=== PATIENT | male | born 1965 | race Caucasian/White ===

== ENCOUNTER 2018-06-02 00:22 | Observation (INO) ==
[2018-06-02 00:56] LABS: Baso # (Auto) 0.1 th/mm3 (0.0-0.2); Baso % (Auto) 0.8 % (0.0-2.0); Eos # (Auto) 0.3 th/mm3 (0.0-0.4); Eos % (Auto) 3.2 % (0.0-4.0); Hematocrit 44.7 % (39.0-51.0); Hemoglobin 15.2 gm/dL (13.0-17.0); Lymph # (Auto) 2.2 th/mm3 (1.0-4.8); Lymph % (Auto) 25.7 % (9.0-44.0); Mean Corpuscular HGB Conc 34.1 % (32.0-36.0); Mean Corpuscular Hemoglobin 32.3 pg (27.0-34.0); Mean Corpuscular Volume 94.7 fL (80.0-100.0); Mean Platelet Volume 8.7 fL (7.0-11.0); Mono % (Auto) 11.3 % (0.0-8.0); Platelet Count 201 th/mm3 (150-450); Red Blood Count 4.72 mil/mm3 (4.50-5.90); Red Cell Distribution Width 13.2 % (11.6-17.2); White Blood Count 8.5 th/mm3 (4.0-11.0)
[2018-06-02] MEDS ORDERED: Sodium Chlor 0.9% Inj 500 ML IV.SIG ONE ×2 (01:05→02:14)
[2018-06-02 01:15] LABS: Activated Partial Thrombo Time 19.8 sec (23.4-31.7); Prothrombin Time 10.4 sec (9.8-11.6)
[2018-06-02 01:18] LABS: Alanine Aminotransferase 71 U/L (12-78); Albumin 3.6 g/dL (3.4-5.0); Anion Gap 12 meq/L (5-15); Aspartate Aminotransferase 76 U/L (15-37); Blood Urea Nitrogen 19 mg/dL (7-18); Calcium 8.6 mg/dL (8.5-10.1); Carbon Dioxide 25.8 meq/L (21.0-32.0); Chloride 101 meq/L (98-107); Glomerular Filtration Rate 55 mL/min (>89); Glucose,Random 139 mg/dL (74-106); Lipase 187 U/L (73-393); Potassium 3.1 meq/L (3.5-5.1); Sodium 139 meq/L (136-145)
[2018-06-02 01:25] LABS: Alkaline Phosphatase 82 U/L (45-117); Creatine Kinase 179 U/L (39-308); Total Protein 7.3 g/dL (6.4-8.2)
--- NOTE | 2018-06-02 01:38 | ED ---
HPI General Chief complaint: Fall Stated complaint: fall Time Seen by Provider: 06/02/18 00:32 Source: patient History of Present Illness HPI narrative: The patient is a a 53 year old male who presents to the [facility] emergency department with a history of passing out prior to arrival. The patient reports that he got up off of the couch after watching television to go to bed and the next thing he knows is he awoke on the floor with ambulance services surrounding them. His was at his side when this occurred. She reports that she heard him land on the floor. She reports that he was unresponsive for approximately 30-45 seconds with his eyes closed, unresponsive to physical or verbal stimulation by her. She reports that she immediately called the ambulance services and while she was on the phone with 911 he became responsive and grabbed her arms stating, "I am scared." At this time, he is awake and alert, however he cannot recall any of the events prior to the syncopal event besides watching television. He is unsure whether he had any lightheaded sensation prior to this, palpitations, chest pain, or shortness of breath. He denies having any chest pain, chest pressure, or shortness of breath at this time. He does report having a headache and did acquire an approximately 2 cm laceration to the occiput. He denies having any neck pain, numbness or tingling to his extremities, or weakness of his extremities. On review of systems otherwise, the patient denies having any known recent fevers, cough, congestion, abdominal pain, diarrhea, urinary symptoms, or other neurologic symptoms. The patient reports that he does have a history of chronic nausea and intermittent dry heaving usually in the mornings that is been present for the last 2 years and under workup by his primary care doctor and keyboard specialist. Related Data Home Medications Medication Instructions Recorded Confirmed aspirin [Aspirin Low Dose] 81 mg PO DAILY 06/02/18 06/02/18 losartan 50 mg PO DAILY 06/02/18 06/02/18 pantoprazole 20 mg PO DAILY 06/02/18 06/02/18 Allergies Allergy/AdvReac Type Severity Reaction Status Date / Time penicillin G Allergy Mild SHOCK Unverified 12/02/16 20:42 Review of Systems ROS: all other systems reviewed are negative [facility] Medical History Medical History GERD (gastroesophageal reflux disease) (Acute) Gout (Acute) Hyperlipidemia (Acute) Hypertension (Acute) Surgical History Surgical History H/O hernia repair (Acute) H/O knee surgery (Acute) Social History Social History Substance History: No History of Abuse Second Hand Smoke Exposure: No Smoking Status: Never smoker How Often Do You Have a Drink Containing Alcohol: 4 or more times a week Recent Travel in [facility] within the Last 8 Weeks: No Recent Out of Country Travel within the Last 8 Weeks: No Immunization History Tetanus Immunization: >5 Years Exam Const General: cooperative, no acute distress and well developed Nutritional Appearance: well nourished Orientation: alert, awake and oriented x3 HENMT Head: normocephalic and other (trauma to occiput with superficial and 2 cm, no active bleeding) Nose: no nasal discharge and no epistaxis Mouth: moist mucous membranes Throat: posterior oropharynx normal and uvula midline Eyes Sclera: normal sclerae Pupils: PERRL Neck Neck: no meningeal signs, trachea midline and no JVD Resp Effort & Inspection: no use of accessory muscles Auscultation: clear to auscultation bilaterally Cardio Rate: regular rate Rhythm: regular rhythm Heart Sounds: no murmurs GI Inspection: non-distended Palpation: soft, no hepatosplenomegaly, no guarding, not rigid and nontender Auscultation: normal bowel sounds Back/Spine/Pelvis Back: no CVA tenderness Cervical Spine: No cervical spinal tenderness Thoracic/Lumbar Spine: No thoracic spinal tenderness and No lumbar spinal tenderness Skin General: dry skin (warm) Neuro General: alert, awake and oriented x3 Cranial Nerves: CN's II-XI intact bilaterally Speech: speech normal Motor: strength 5/5 throughout and no movement abnormalities noted Sensory Exam: no sensory deficits noted Extrem General: normal to inspection, no clubbing, no cyanosis and no edema Psych Mood: congruent mood Affect: normal affect Judgment: judgment good Course Initial Documented Vital Signs Pulse Rate 98 H 06/02/18 00:33 Respiratory Rate 18 06/02/18 00:33 Blood Pressure 133/80 06/02/18 00:33 Pulse Oximetry 95 06/02/18 00:33 Last Documented Vital Signs Temperature 98.4 F 06/02/18 08:19 Pulse Rate 90 06/02/18 08:19 Respiratory Rate 16 06/02/18 08:19 Blood Pressure 104/60 06/02/18 08:19 Pulse Oximetry 92 L 06/02/18 08:19 Medical Decision Making MDM Narrative Medical decision making narrative: During the course of the patient's emergency department visit, the patient's history, examination, and differential diagnosis were reviewed with the patient. The patient was placed on a environmental health aide with oximetry and frequent blood pressure monitoring. The patient had IV access obtained and blood work sent for analysis. A diagnostic evaluation was started regarding this patient's syncopal event. The patient had orthostatic vital signs ordered. The patient was orthostatic based on his vital signs with a drop in his blood pressure of 28 mmHg. The patient was initially provided normal saline a total of 1 L IV fluid bolus. The patient CT scan of the brain showed no acute abnormality. CT scan of the C- spine showed no acute bony abnormality. The patient's laboratory studies are remarkable for potassium 3.1 which was supplemented orally. The patient's creatinine was also noted to be elevated at 1.35. The patient reports that he normally has denies any history of renal insufficiency. This could be related to dehydration. The patient was started on p.o. hydration. The patient's case including history, pertinent physical examination findings, and laboratory studies were discussed with Dr. Godinez. It was agreed that the patient would be admitted to the [facility] hospitalist service. The patient's results were discussed with the patient, including the plan of care. I explained that further testing and/ or monitoring is indicated based on the patient's history, examination, and/ or laboratory findings. Therefore, I recommended admission for additional evaluation. The patient expressed understanding and was agreeable with this plan. The patient was admitted to the hospital in guarded condition and sent to a bed under the care of the [facility] hospitalist. Medical Screen Exam Complete: Yes Emergency Medical Condition: Yes Differential Diagnosis Differential Diagnosis: Orthostatic syncope, versus vasovagal syncope, versus cardiac arrhythmia, versus hypotension, versus dehydration Medical Records Medical records reviewed: Yes I reviewed the patient's medical records. Lab Data Lab results reviewed: Yes I reviewed the patient's lab results. Result diagrams: 06/02/18 00:45 06/02/18 00:45 Lab Results 06/02/18 06/02/18 06/02/18 Range/Units 00:45 00:45 00:45 WBC 8.5 (4.0-11.0) th/mm3 RBC 4.72 (4.50-5.90) mil/mm3 Hgb 15.2 (13.0-17.0) gm/dL Hct 44.7 (39.0-51.0) % MCV 94.7 (80.0-100.0) fL MCH 32.3 (27.0-34.0) pg MCHC 34.1 (32.0-36.0) % RDW 13.2 (11.6-17.2) % Plt Count 201 (150-450) th/mm3 MPV 8.7 (7.0-11.0) fL Neut % (Auto) 59.0 (16.0-70.0) % Lymph % (Auto) 25.7 (9.0-44.0) % Logan % (Auto) 11.3 H (0.0-8.0) % Eos % (Auto) 3.2 (0.0-4.0) % Baso % (Auto) 0.8 (0.0-2.0) % Neut # (Auto) 5.0 (1.8-7.7) th/mm3 Lymph # (Auto) 2.2 (1.0-4.8) th/mm3 Logan # (Auto) 1.0 H (0.0-0.9) th/mm3 Eos # (Auto) 0.3 (0.0-0.4) th/mm3 Baso # (Auto) 0.1 (0.0-0.2) th/mm3 WBC Differential . Differential Comment Auto diff final PT 10.4 (9.8-11.6) sec INR 1.0 Ratio APTT 19.8 L (23.4-31.7) sec Sodium 139 (136-145) meq/L Potassium 3.1 L (3.5-5.1) meq/L Chloride 101 (98-107) meq/L Carbon Dioxide 25.8 (21.0-32.0) meq/L Anion Gap 12 (5-15) meq/L BUN 19 H (7-18) mg/dL Creatinine 1.35 H (0.60-1.30) mg/dL Estimated GFR 55 L (>89) mL/min Random Glucose 139 H (74-106) mg/dL Calcium 8.6 (8.5-10.1) mg/dL Total Bilirubin 0.4 (0.2-1.0) mg/dL AST 76 H (15-37) U/L ALT 71 (12-78) U/L Alkaline Phosphatase 82 (45-117) U/L Total Creatine Kinase 179 (39-308) U/L CK-MB (CK-2) 1.4 (0.5-3.6) ng/mL Troponin I Less than 0.02 L (0.02-0.05) ng/mL Total Protein 7.3 (6.4-8.2) g/dL Albumin 3.6 (3.4-5.0) g/dL Lipase 187 (73-393) U/L Urine Opiates Screen (Neg) Ur Barbiturates Screen (Neg) Ur Amphetamines Screen (Neg) U Benzodiazepines Scrn (Neg) Urine Cocaine Screen (Neg) U Cannabinoids Screen (Neg) Serum Alcohol 217 H (0-5) mg/dL 06/02/18 Range/Units 01:25 WBC (4.0-11.0) th/mm3 RBC (4.50-5.90) mil/mm3 Hgb (13.0-17.0) gm/dL Hct (39.0-51.0) % MCV (80.0-100.0) fL MCH (27.0-34.0) pg MCHC (32.0-36.0) % RDW (11.6-17.2) % Plt Count (150-450) th/mm3 MPV (7.0-11.0) fL Neut % (Auto) (16.0-70.0) % Lymph % (Auto) (9.0-44.0) % Logan % (Auto) (0.0-8.0) % Eos % (Auto) (0.0-4.0) % Baso % (Auto) (0.0-2.0) % Neut # (Auto) (1.8-7.7) th/mm3 Lymph # (Auto) (1.0-4.8) th/mm3 Logan # (Auto) (0.0-0.9) th/mm3 Eos # (Auto) (0.0-0.4) th/mm3 Baso # (Auto) (0.0-0.2) th/mm3 WBC Differential Differential Comment PT (9.8-11.6) sec INR Ratio APTT (23.4-31.7) sec Sodium (136-145) meq/L Potassium (3.5-5.1) meq/L Chloride (98-107) meq/L Carbon Dioxide (21.0-32.0) meq/L Anion Gap (5-15) meq/L BUN (7-18) mg/dL Creatinine (0.60-1.30) mg/dL Estimated GFR (>89) mL/min Random Glucose (74-106) mg/dL Calcium (8.5-10.1) mg/dL Total Bilirubin (0.2-1.0) mg/dL AST (15-37) U/L ALT (12-78) U/L Alkaline Phosphatase (45-117) U/L Total Creatine Kinase (39-308) U/L CK-MB (CK-2) (0.5-3.6) ng/mL Troponin I (0.02-0.05) ng/mL Total Protein (6.4-8.2) g/dL Albumin (3.4-5.0) g/dL Lipase (73-393) U/L Urine Opiates Screen Neg (Neg) Ur Barbiturates Screen Neg (Neg) Ur Amphetamines Screen Neg (Neg) U Benzodiazepines Scrn Neg (Neg) Urine Cocaine Screen Neg (Neg) U Cannabinoids Screen Neg (Neg) Serum Alcohol (0-5) mg/dL Imaging Data Radiologist's impression: Cervical Spine CT 06/02/18 02:16 CONCLUSION: No acute bony injury in the cervical spine. Head CT 06/02/18 02:16 CONCLUSION: Negative CT Head non contrast. . ECG Data Attestation: I personally reviewed and interpreted this ECG as follows: Interpretation: The patient had an EKG done on arrival. The patient's EKG reveals a sinus rhythm heart rate of 90, QRS duration 105 ms, QTC [address] segment elevation. T waves are inverted in V1. Discharge Plan Discharge Disposition Patient Disposition: ED Admit(ED Internal Use Only) Discharge Order Discharge Orders: ED Use Only Admit Order (Routine); Ordered 06/02/18 Ordered By: Ya Bryant Discharge Details Diagnosis: Head injury, Syncope, Orthostasis Physicians Team ED Provider: Ya Bryant Primary Care Provider: Fredrick Branham Attending Provider: Donnie Monreal Discharge Interventions Interventions: Vital Signs Last Done: 06/02/18 00:45 ED Discharge Assessment Last Done: 06/02/18 03:23 Status ED Status: Left Department Discharge Information Discharge Date/Time: 06/02/18 03:21
[2018-06-02 01:41] LABS: Alcohol 217 mg/dL (0-5)
[2018-06-02 01:53] LABS: Creatine Kinase MB 1.4 ng/mL (0.5-3.6)
[2018-06-02 02:12] LABS: Amphetamine Screen,Urine Neg (Neg); Barbiturate Screen,Urine Neg (Neg); Cannabinoid Screen,Urine Neg (Neg); Cocaine Screen,Urine Neg (Neg)
[2018-06-02 02:14] LABS: Opiate Screen,Urine Neg (Neg)
--- NOTE | 2018-06-02 02:58 | CT ---
EXAM DATE: 06/02/2018 2:34 AM EST AGE/SEX: 53 years / Male INDICATIONS: Trauma, fall. Laceration to posterior head. CLINICAL DATA: This is the patient's initial encounter. Patient reports that signs and symptoms have been present for 1 day and indicates a pain score of 7/10. MEDICAL/SURGICAL HISTORY: Hypertension. Gastroesophageal reflux disease. None. RADIATION DOSE: 37.56 CTDI (mGy) COMPARISON: [facility], CT SINUSES W/O CONTRAST, 03/27/2014. . TECHNIQUE: CT of the head without contrast. Using automated exposure control and adjustment of the mA and/or kV according to patient size, radiation dose was kept as low as reasonably achievable to ob tain optimal diagnostic quality images. DICOM format image data is available electronically for revi ew and comparison. FINDINGS: Cerebrum: The ventricles are normal for age. No evidence of midline shift, mass lesion, hemorrhage or acute infarction. No extraaxial fluid collections are seen. Posterior Fossa: The cerebellum and brainstem are intact. The 4th ventricle is midline. The cerebe llopontine angle is unremarkable. Extracranial: The visualized portion of the orbits is intact. Skull: The calvaria is intact. No evidence of skull fracture. CONCLUSION: Negative CT Head non contrast. . Electronically signed by: Kartik Dugan MD Board Certified Radiologist 06/02/2018 2:57 AM EST
--- NOTE | 2018-06-02 03:00 | CT ---
EXAM DATE: 06/02/2018 2:38 AM EST AGE/SEX: 53 years / Male INDICATIONS: Trauma, fall. CLINICAL DATA: This is the patient's initial encounter. Patient reports that signs and symptoms have been present for 1 day and indicates a pain score of 7/10. MEDICAL/SURGICAL HISTORY: Hypertension. Gastroesophageal reflux disease. None. RADIATION DOSE: 20.41 CTDI (mGy) COMPARISON: No prior exams available for comparison. TECHNIQUE: Contiguous axial images were obtained using helical multirow detector technique. The vol umetric data was post-processed with multiplanar reconstruction in oblique axial, sagittal, and coron al planes. Using automated exposure control and adjustment of the mA and/or kV according to patient s ize, radiation dose was kept as low as reasonably achievable to obtain optimal diagnostic quality ace ges. DICOM format image data is available electronically for review and comparison. FINDINGS: Spinal alignment is satisfactory. There is no evidence of fracture. There is mild degenera tive change with disc space narrowing most notably at C6-7 and tiny ventral endplate osteophytes note d. Incidental os odontoideum. No bony canal or foraminal stenosis is identified. There is no evidence of paraspinal hematoma. CONCLUSION: No acute bony injury in the cervical spine. Electronically signed by: Kartik Dugan MD Board Certified Radiologist 06/02/2018 2:58 AM EST
--- NOTE | 2018-06-02 09:19 | P.HPIM ---
History of Present Illness Primary Care Physician: Fredrick Branham MD Chief Complaint: Syncope History of Present Illness: The patient is a a 53 year old male past medical history which includes insomnia, ED, hyperlipidemia, hypertension, gout, low testosterone and GERD. Patient presents to the [facility] emergency department after syncopal episode at home. The patient reports that he got up off of the couch after watching television to go to bed and the next thing he knows is he awoke on the floor with ambulance services surrounding them. His was at his side when this occurred. She reports that she heard him land on the floor. She reports that he was unresponsive for approximately 30-45 seconds with his eyes closed, unresponsive to physical or verbal stimulation by her. She reports that she immediately called the ambulance services and while she was on the phone with 911 he became responsive and grabbed her arms stating , "I am scared." At this time, he is awake and alert, however he cannot recall any of the events prior to the syncopal event besides watching television. He is unsure whether he had any lightheaded sensation prior to this, palpitations, chest pain, or shortness of breath. He denies having any chest pain, chest pressure, or shortness of breath at this time. He does report having a headache and did acquire an approximately 2 cm laceration to the occiput. He denies having any neck pain, numbness or tingling to his extremities, or weakness of his extremities. On review of systems otherwise, the patient denies having any known recent fevers, cough, congestion, abdominal pain, diarrhea, urinary symptoms, or other neurologic symptoms. PMH: insomnia, ED, hyperlipidemia, hypertension, gout, low testosterone and GERD PsxH: Left knee arthroscopic x 2, hernia repair at 2 years old, closed treatment of knee fracture tibial plateau, EGD, bunionectomy, inguinal hernia repair, injection of the lumbar spine Social history: Not lives with significant other EtOH use, "a lot," patient reports 2 large vodkas drinks daily Former smoker quit smoking at age 26 prior to quitting had a 10 year pack year history Denies illicit drug use FMH: Father with CAD status post bypass and COPD Mother with diabetes COPD chronic kidney disease and EtOH abuse Medications and Allergies Allergies Allergy/AdvReac Type Severity Reaction Status Date / Time penicillin G Allergy Mild SHOCK Unverified 12/02/16 20:42 Home Medications Medication Instructions Recorded Confirmed Type aspirin [Aspirin Low Dose] 81 mg PO DAILY 06/02/18 06/02/18 History hydrochlorothiazide 25 mg PO DAILY 06/02/18 06/02/18 History losartan 50 mg PO DAILY 06/02/18 06/02/18 History pantoprazole 20 mg PO DAILY 06/02/18 06/02/18 History Physical Exam Vital signs: Last Vital Signs Temp 98.4 F 06/02/18 08:19 Pulse 90 06/02/18 08:19 Resp 16 06/02/18 08:19 BP 104/60 06/02/18 08:19 Pulse Ox 92 L 06/02/18 08:19 Narrative: GENERAL: This is a well-nourished, well-developed patient, in no apparent distress. SKIN: approximately 1 cm scabbed laceration posterior scalp CARDIOVASCULAR: Regular rate and rhythm RESPIRATORY: Clear to auscultation. Breath sounds equal bilaterally. GASTROINTESTINAL: Abdomen soft, non-tender, nondistended. Normal active bowel sounds MUSCULOSKELETAL: Extremities without clubbing, cyanosis, or edema. NEURO: Alert & Oriented x4 to person, place, time, situation. Moves all ext x4 Results Labs CBC & Chem 7: 06/02/18 00:45 06/02/18 10:45 Caprini VTE Risk Assessment Caprini VTE Risk Assessment: No/Low Risk (score <= 1) Caprini Risk Assessment Model: Point Value = 1 Point Value = 2 Point Value = 3 Point Value = 5 Age 41-60 Minor surgery BMI > 25 kg/m2 Swollen legs Varicose veins or History of unexplained or recurrent spontaneous Oral contraceptives or hormone replacement Sepsis (< 1 month) Serious lung disease, including pneumonia (< 1 month) Abnormal pulmonary function Acute myocardial infarction Congestive heart failure (< 1 month) History of inflammatory bowel disease Medical patient at bed rest Age 61-74 Arthroscopic surgery Major open surgery (> 45 min) Laparoscopic surgery (> 45 min) Malignancy Confined to bed (> 72 hours) Immobilizing plaster cast Central venous access Age >= 75 History of VTE Family history of VTE Factor V Leiden Prothrombin [id number] Lupus anticoagulant Anticardiolipin antibodies Elevated serum homocysteine Heparin-induced thrombocytopenia Other congenital or acquired thrombophilia Stroke (< 1 month) Elective arthroplasty Hip, pelvis, or leg fracture Acute spinal cord injury (< 1 month) Prophylaxis Regimen: Total Risk Factor Score Risk Level Prophylaxis Regimen 0-1 Low Early ambulation 2 Moderate Order ONE of the following: *Sequential Compression Device (SCD) *Heparin 5000 units SQ BID 3-4 Higher Order ONE of the following medications: *Heparin 5000 units SQ TID *Enoxaparin/Lovenox 40 mg SQ daily (WT < 150 kg, CrCl > 30 mL/min) *Enoxaparin/Lovenox 30 mg SQ daily (WT < 150 kg, CrCl > 10-29 mL/min) *Enoxaparin/Lovenox 30 mg SQ BID (WT < 150 kg, CrCl > 30 mL/min) AND/OR *Sequential Compression Device (SCD) 5 or more Highest Order ONE of the following medications: *Heparin 5000 units SQ TID (Preferred with Epidurals) *Enoxaparin/Lovenox 40 mg SQ daily (WT < 150 kg, CrCl > 30 mL/min) *Enoxaparin/Lovenox 30 mg SQ daily (WT < 150 kg, CrCl > 10-29 mL/min) *Enoxaparin/Lovenox 30 mg SQ BID (WT < 150 kg, CrCl > 30 mL/min) AND *Sequential Compression Device (SCD) Assessment and Plan Plan The patient is a a 53 year old male past medical history which includes chronic nausea/vomiting times 2 years being worked up by his primary care provider and gastroenterology, insomnia, ED, hyperlipidemia, hypertension, gout, low testosterone and GERD. Patient presents to the [facility] emergency department after syncopal episode at home. Patient fell after standing up from couch while watching TV. Syncopal event witnessed by his . Patient reported to have loss of consciousness/unresponsiveness for 30-45 seconds. There is no report of shaking tongue biting or loss of bowel or bladder control. Syncopal episode possible related to dehydration/EOTH intoxication CT of the head reviewed and revealed negative CT head noncontrast Cervical spine CT reveals no acute bony injury and cervical spine Hemoglobin on admission 15.2 Glucose on admission 139 Orthostatic vital signs in emergency department include Laying BP 133/63 with pulse of 93 Sitting BP 105/59 with pulse of 87 Standing BP 105/61 Emergency department BUN 19, creatinine 1.35, estimated GFR 55 Patient given 2 L normal saline in emergency department alcohol level on admission 217 Echocardiogram completed by no report available yet, patient can follow up with PCP regarding results Carotid ultrasound Mild plaquing in the carotid systems with no significant stenosis. Nonvisualization of the left vertebral artery which could indicate occlusion. Recheck orthostatic vital signs after hydration Laying 126/77 HR 97 Sitting 135/85 HR 100 Standing 145/95 HR 105 Hypertension Hold hydrochlorothiazide 25 mg daily Continue patient's home losartan 50 mg p.o. daily GERD Continue patient's home pantoprazole 20 mg p.o. daily Hypokalemia potassium 3.1 on admission -> 3.9 on recheck Patient given 40 M EQ's KCl orally ETOH abuse Patient counselled encouraged to abstain Encouraged patient to follow up with behavioral health for assistance in quitting alcohol use DVT prophylaxis with SCDs
[2018-06-02 11:41] LABS: Calcium 8.6 mg/dL (8.5-10.1); Carbon Dioxide 24.9 meq/L (21.0-32.0); Potassium 3.9 meq/L (3.5-5.1)
--- NOTE | 2018-06-02 14:32 | US ---
EXAM DATE: 06/02/2018 2:26 PM EST AGE/SEX: 53 years / Male INDICATIONS: Syncope. And fall with laceration to posterior aspect of the head. CLINICAL DATA: This is the patient's initial encounter. Patient reports that signs and symptoms have been present for 1 day and indicates a pain score of 0/10. MEDICAL/SURGICAL HISTORY: Gastroesophageal reflux disease. Hypertension. Hyperlipidemia. Gout. . Hernia repair. Knee surgery. COMPARISON: No prior exams available for comparison. VELOCITY PARAMETERS: ICA/CCA Ratio: Right 0.7 , Left 0.8 ICA: Right 96 cm/sec, Left 106 cm/sec CCA: Right 136 cm/sec, Left 130 cm/sec ECA: Right 88 cm/sec, Left 118 cm/sec Vertebral: Right 58 cm/sec antegrade, Left 118 cm/sec absent FINDINGS: Right Carotid: Mild arteriosclerotic plaque is visualized.The waveforms are within normal limits. Left Carotid: Mild arteriosclerotic plaque is visualized. The waveforms are within normal limits. Other: None. CONCLUSION: 1. Mild plaquing in the carotid systems with no significant stenosis. 2. Nonvisualization of the left vertebral artery which could indicate occlusion. Electronically signed by: Ramos Recinos MD Board Certified Radiologist 06/02/2018 2:31 PM EST
[2018-06-02 16:37] LABS: Hemoglobin A1c 6.3 % (4.3-6.0)
--- NOTE | 2018-06-02 18:10 | CT ---
EXAM DATE: 06/02/2018 6:02 PM EST AGE/SEX: 53 years / Male INDICATIONS: Head injury. Syncope. Abnormal carotid ultrasound. CLINICAL DATA: This is the patient's initial encounter. Patient reports that signs and symptoms have been present for 1 day and indicates a pain score of 0/10. MEDICAL/SURGICAL HISTORY: Gastroesophageal reflux disease. Hypertension. None. RADIATION DOSE: 10.94 CTDI (mGy) COMPARISON: No prior exams available for comparison. TECHNIQUE: Volumetric scanning was performed using a multirow detector CT scanner during bolus infus ion of 73 ml Omnipaque 350 (iohexol) nonionic water-soluble contrast as a single exam dose. The da ta was postprocessed with a variety of visualization algorithms including full-volume maximum intensi ty projection, multiplanar sliding thin-slab reformation, curved-planar reformation, and surface-rend ering techniques. Using automated exposure control and adjustment of the mA and/or kV according to p atient size, radiation dose was kept as low as reasonably achievable to obtain optimal diagnostic eduardo lity images. DICOM format image data is available electronically for review and comparison. FINDINGS: Aortic Arch: There is a three-vessel origin of the great vessels from the aorta. No evidence of ost ial narrowing Right Carotid: The common carotid artery is intact. The carotid bulb has a normal configuration wit hout ulceration or narrowing. The internal carotid artery lumen is smooth without stenosis. The ext ernal carotid artery is intact. Left Carotid: The common carotid artery is intact. The carotid bulb has a normal configuration with out ulceration or narrowing. The internal carotid artery lumen is smooth without stenosis. The exte rnal carotid artery is intact. Vertebrals: The vertebral arteries have a symmetric diameter. No stenotic lesions are seen. Percent stenosis is calculated using the diameter of the stenotic region over the diameter of the nor mal distal internal carotid artery. CONCLUSION: 1. Patent carotid arteries and vertebral arteries bilaterally. Electronically signed by: Elias Solares MD Board Certified Radiologist 06/02/2018 6:09 PM EST
--- NOTE | 2018-06-02 18:56 | ECHRPT ---
Indication: SYNCOPE CONCLUSIONS Normal left ventricular size. Wall thickness is normal. The left ventricular systolic function is normal with an estimated ejection fraction in the range of 55-60%. Mitral annular calcification is present. BP: / HR: Rhythm: Technical Quality: FINDINGS LEFT VENTRICLE Normal left ventricular size. Wall thickness is normal. The left ventricular systolic function is normal with an estimated ejection fraction in the range of 55-60%. RIGHT VENTRICLE Normal right ventricular size and systolic function. LEFT ATRIUM The left atrial size is normal. RIGHT ATRIUM The right atrial size is normal. ATRIAL SEPTUM Normal atrial septal thickness without atrial level shunting by limited color doppler interrogation. AORTA The aortic root and proximal ascending aorta are normal in size on limited imaging. MITRAL VALVE Mitral annular calcification is present. AORTIC VALVE Trileaflet aortic valve. No aortic valve stenosis or regurgitation. TRICUSPID VALVE Structurally normal tricuspid valve. No tricuspid valve stenosis or regurgitation. PULMONARY VALVE The pulmonary valve is not well visualized. VESSELS The inferior vena cava is normal in size. PERICARDIUM No pericardial effusion. Maylin Stewart MD, FACC (Electronically Signed) Final Date:02 June 2018 18:56
--- NOTE | 2018-06-02 20:17 | ECG ---
Date Performed: 06/02/2018 Time Performed: 00:24:08 PTAGE: 53 years EKG: Sinus rhythm NORMAL ECG NO PREVIOUS TRACING DOCTOR: Jak Tamez Interpretating Date/Time 06/02/2018 20:16:37
[2018-06-02] MEDS ORDERED: Acetaminophen 325 MG Tablet PO PRN (21:36)
[2018-06-03 03:42] VITALS: RESP 16
[2018-06-03 07:57] VITALS: BP 150/93; TEMP 97.9; O2SAT 96
--- NOTE | 2018-06-03 08:13 | P.PNIM ---
Subjective Interval history: Patient offers no concerns/complaints at this time Looking forward to [place] home Physical Exam Vital signs: Last Vital Signs Temp 97.9 F 06/03/18 07:55 Pulse 72 06/03/18 07:55 Resp 16 06/03/18 07:55 BP 150/93 H 06/03/18 07:55 Pulse Ox 96 06/03/18 07:55 Narrative: GENERAL: This is a well-nourished, well-developed patient, in no apparent distress. SKIN: approximately 1 cm scabbed laceration posterior scalp CARDIOVASCULAR: Regular rate and rhythm RESPIRATORY: Clear to auscultation. Breath sounds equal bilaterally. GASTROINTESTINAL: Abdomen soft, non-tender, nondistended. Normal active bowel sounds MUSCULOSKELETAL: Extremities without clubbing, cyanosis, or edema. NEURO: Alert & Oriented x4 to person, place, time, situation. Moves all ext x4 Results Labs CBC & Chem 7: 06/02/18 00:45 06/02/18 10:45 Assessment and Plan Plan The patient is a a 53 year old male past medical history which includes chronic nausea/vomiting times 2 years being worked up by his primary care provider and gastroenterology, insomnia, ED, hyperlipidemia, hypertension, gout, low testosterone and GERD. Patient presents to the [facility] emergency department after syncopal episode at home. Patient fell after standing up from couch while watching TV. Syncopal event witnessed by his . Patient reported to have loss of consciousness/unresponsiveness for 30-45 seconds. There is no report of shaking tongue biting or loss of bowel or bladder control. Syncopal episode possible related to dehydration/EOTH intoxication CT of the head reviewed and revealed negative CT head noncontrast Cervical spine CT reveals no acute bony injury and cervical spine Hemoglobin on admission 15.2 Glucose on admission 139 Orthostatic vital signs in emergency department include Laying BP 133/63 with pulse of 93 Sitting BP 105/59 with pulse of 87 Standing BP 105/61 Emergency department BUN 19, creatinine 1.35, estimated GFR 55 Patient given 2 L normal saline in emergency department alcohol level on admission 217 Echocardiogram completed by no report available yet, patient can follow up with PCP regarding results Carotid ultrasound Mild plaquing in the carotid systems with no significant stenosis. Nonvisualization of the left vertebral artery which could indicate occlusion. Recheck orthostatic vital signs after hydration Laying 126/77 HR 97 Sitting 135/85 HR 100 Standing 145/95 HR 105 Neck CTA 06/02/18 Patent carotid arteries and vertebral arteries bilaterally. Hypertension Hold hydrochlorothiazide 25 mg daily Continue patient's home losartan 50 mg p.o. daily GERD Continue patient's home pantoprazole 20 mg p.o. daily Hypokalemia potassium 3.1 on admission -> 3.9 on recheck Patient given 40 M EQ's KCl orally ETOH abuse Patient counselled encouraged to abstain Encouraged patient to follow up with behavioral health for assistance in quitting alcohol use DVT prophylaxis with SCDs DC home in stable condition on a heart heathy diet with no activity restriction DC home HCTZ, continue other home medications Patient to follow up with PCP and mental health Progress Note: Quality VTE Deep Vein Thrombosis/Pulmonary Embolism Present on Admission: No
[2018-06-03] MEDS ORDERED: Pantoprazole Sodium 20 MG DR Tablet PO SCH (09:00)
[2018-06-03 11:05] VITALS: PULSE 75
== END 2018-06-03 11:32 | disposition home or self-care (01) ==
LOC: NEPC 00:22 → NEDA 00:22 → NEPFCDU 03:21
PROVIDERS: ADMIT Hospitalist; ATTEND Hospitalist
DX: E78.5 Hyperlipidemia, unspecified; F10.10 Alcohol abuse, uncomplicated; K21.9 Gastro-esophageal reflux disease without esophagitis; E87.6 Hypokalemia; I10 Essential (primary) hypertension; X58.XXXA Exposure to other specified factors, initial encounter; Z79.82 Long term (current) use of aspirin; R55 Syncope and collapse; Z79.899 Other long term (current) drug therapy; Z87.891 Personal history of nicotine dependence; S01.01XA Laceration without foreign body of scalp, initial encounter; I65.23 Occlusion and stenosis of bilateral carotid arteries
CPT/HCPCS: 70450; 70498; 72125; 80048; 80053; 80307; 82550; 82552; 83036; 83690; 84484; 85025; 85610; 85730; 90761; 90774; 90784; 93005; 93306; 93880; 96361; 96374; 97162; 99285; C8952; G0378; G8987; G8988; J2405; J7040; Q9967